=== PATIENT | female | born 1980 | race Caucasian/White ===

== ENCOUNTER 2017-02-22 10:30 | Emergency (ER) | payer OTHER, BC ==
[~2017-02-22] VITALS: Ht 165.1 cm; Wt 81.6 kg
--- NOTE | 2017-02-22 11:02 | NUR ---
Pt states she fell while rollerskating last night, fell on left elbow. Pt c/o pain and limited movement, minor swelling noted. Pt denies CP, SOB, dizziness, n/v, no other complaints, no distress noted.
--- NOTE | 2017-02-22 12:35 | NUR ---
Placed left arm in sling. PMS still intact. Gave pt RX and d/c instructions, verbalized understanding.
== END 2017-02-22 12:41 | disposition other institution (70) ==
LOC: ER 10:31
DX: S52.123A Displaced fracture of head of unspecified radius, initial encounter for closed fracture (principal); W18.30XA Fall on same level, unspecified, initial encounter; Y93.89 Activity, other specified; Y92.9 Unspecified place or not applicable; Y99.9 Unspecified external cause status
CPT/HCPCS: 73080; 99284; A4663